=== PATIENT | male | born 1940 | race Caucasian/White ===

== ENCOUNTER 2020-11-27 09:17 | Emergency (ER) | payer MEDICARE ==
[~2020-11-27] VITALS: Ht 167.6 cm; Wt 63.6 kg
[2020-11-27 10:42] LABS: BASOPHILS % (AUTO) 0.3 % (0-1); EOSINOPHILS % (AUTO) 0.4 % (0-6); HEMATOCRIT 46.8 % (42.0-52.0); HEMOGLOBIN 16.4 g/dl (14.0-17.9); LYMPHOCYTES # (AUTO) 0.7 X10'3 (1.1-4.8); LYMPHOCYTES % (AUTO) 11.9 % (21-51); MEAN CORPUSCULAR HEMOGLOBIN 33.4 PG (27.0-31.0); MEAN CORPUSCULAR HGB CONC 35.1 g/dL (33.0-36.5); MEAN CORPUSCULAR VOLUME 95.1 FL (78-98); MEAN PLATELET VOLUME 7.5 FL (7.4-10.4); MONOCYTES # (AUTO) 0.6 X10'3 (0-0.9); MONOCYTES % (AUTO) 10.3 % (2-12); NEUTROPHILS # (AUTO) 4.5 X10'3 (1.8-7.7); NEUTROPHILS % (AUTO) 77.1 % (42-75); PLATELET COUNT 136 X10'3 (140-440); RED BLOOD COUNT 4.92 X10'6 (4.70-6.10); RED CELL DISTRIBUTION WIDTH 12.9 % (11.5-14.5); WHITE BLOOD COUNT 5.9 X10'3 (4.5-11.0)
[2020-11-27 10:57] LABS: ALANINE AMINOTRANSFERASE 44 U/L (12-78); ALBUMIN 3.3 G/DL (3.4-5.0); ALBUMIN/GLOBULIN RATIO 0.8 (1.1-1.5); ALKALINE PHOSPHATASE 58 IU/L (46-116); ANION GAP 10 (8-16); ASPARTATE AMINO TRANSFERASE 31 U/L (10-37); BILIRUBIN,TOTAL 0.7 MG/DL (0.1-1.0); BLOOD UREA NITROGEN 12 MG/DL (7-18); BUN/CREATININE RATIO 14.1 (5.4-32.0); CALCIUM 8.1 MG/DL (8.5-10.1); CHLORIDE 105 MMOL/L (99-107); CREATININE 0.85 MG/DL (0.60-1.10); ETHANOL < 0.010 GM/DL (0.0-0.010); GLUCOSE 102 MG/DL (70-104); POTASSIUM 3.7 MMOL/L (3.5-5.1); SODIUM 140 MMOL/L (135-145); TOTAL CARBON DIOXIDE 25.4 MMOL/L (24-32); TOTAL PROTEIN 7.2 G/DL (6.4-8.2); eGFR 86 ML/MIN
[2020-11-27 11:03] LABS: CLARITY,URINE CLEAR (Clear); COLOR,URINE YELLOW (Yellow); GLUCOSE, URINE NEGATIVE (Neg); KETONES,URINE NEGATIVE (Neg); LEUKOCYTE ESTERASE ,URINE NEGATIVE (Neg); NITRITES, URINE NEGATIVE (Neg); OCCULT BLOOD,URINE NEGATIVE (Neg); PH,URINE 6.5 (4.8-8.0); PROTEIN,URINE NEGATIVE (Neg); UROBILINOGEN,URINE 0.2 E.U/dL (0.2-1.0)
[2020-11-27 11:05] LABS: UA COLLECTION TYPE VOIDED
[2020-11-27 11:19] LABS: URINE AMPHETAMINE SCREEN NEGATIVE (Neg); URINE BARBITUATE SCREEN NEGATIVE (Neg); URINE BENZODIAZEPINES SCREEN NEGATIVE (Neg); URINE CANNABINOID SCREEN NEGATIVE (Neg); URINE COCAINE SCREEN NEGATIVE (Neg); URINE METHADONE SCREEN NEGATIVE (Neg); URINE OPIATE SCREEN NEGATIVE (Neg); URINE PHENCYCLIDINE SCREEN NEGATIVE (Neg)
[2020-11-27] MEDS ORDERED: LIDOcaine 1% W/epiNEPHrine 1:200,000 10ml vial IJ ONE (11:20)
[2020-11-27] MEDS ORDERED: LIDOcaine 1% w/epiNEPHrine 1:200,000 30ml vial IJ ONE ×2 (11:30)
--- NOTE | 2020-11-27 13:35 | NUR ---
Patient laying on gurney, still not communicating. RICARDO Norton to suture wrist lacerations.
--- NOTE | 2020-11-27 13:50 | NUR ---
PT IS AWAKE, PROVIDER AT BEDSIDE REPAIRING WRIST LACERATION. PT INFORMED THAT HIS NIECE HAD CALLED AND REQUESTED TO VISIT AND/OR RECEIVE INFORMATION REGARDING PT'S STATUS. PT HAS GIVEN PERMISSION FOR HIS NIECE TO RECEIVE INFORMATION AND TO VISIT.
[2020-11-27] MEDS ORDERED: FLO0.4C PO (14:07)
[2020-11-27] MEDS ORDERED: FINA5TAB11 PO (14:07)
[2020-11-27] MEDS ORDERED: TROS20TA4 PO (14:07)
[2020-11-27] MEDS ORDERED: TETanus/Pertussis (Acell)/Diphther VAC/PF (Tdap-Adult) 0.5ml syringe IMVAC ONE (14:35)
--- NOTE | 2020-11-27 16:25 | NUR ---
Patient's niece called to talk to patient and phone call transferred to him
--- NOTE | 2020-11-27 18:45 | NUR ---
RICARDO Pedraza notified that leif would like to speak to him regarding "prn" medications she feels would benefit the patient. Leif reassured that patient is currently calm and comfortable, reading magazine with warm blankets and ear plugs.
--- NOTE | 2020-11-27 18:53 | NUR ---
aHydee Mcdowell: [phone] called to check on patient.
[2020-11-27] MEDS: oxybutynin 5mg tablet PO SCH (21:59)
--- NOTE | 2020-11-27 23:41 | NUR ---
Patient ambulatory with steady gait- transferred to other room.
--- NOTE | 2020-11-28 | NUR ---
PATIENT'S PACKET HAS BEEN SENT TO [facility].
--- NOTE | 2020-11-28 00:37 | NUR ---
Patient made aware that it is past midnight- patient thought it was 6am. Patient now laying in bed, resting with even and unlabored respirations.
--- NOTE | 2020-11-28 02:13 | NUR ---
Patient resting in stretcher- earlier was complaining of the "noise". Wearing ear plugs but states he can hear the vents too loudly so was pacing the room trying to find "a quiet area".
--- NOTE | 2020-11-28 04:06 | NUR ---
Patient ambulatory to and from bathroom with steady gait.
--- NOTE | 2020-11-28 06:43 | NUR ---
Received report, pt. sleeping at this time on his left side, rr even and unlabored.
--- NOTE | 2020-11-28 07:41 | NUR ---
Pt. awake, up beside bed doing light exercises at this time, reports he is doing well.
[2020-11-28] MEDS: oxybutynin 5mg tablet PO SCH ×3 (07:46→20:08)
--- NOTE | 2020-11-28 07:50 | NUR ---
1:1 completed at bedside, pt. currently denies any S/I, he states, "I was a little bit stupid. I was pissed off and I messed up." When further questioned by this report writer, he admits that he became upset that he was not able to live with his niece anymore and was placed at [facility]. Pt. reports he regrets what he did and wishes to return this this facility, will endorse to [facility].
[2020-11-28] MEDS ORDERED: tamsulosin 0.4mg capsule PO SCH (08:00)
[2020-11-28] MEDS ORDERED: finasteride 5mg tablet PO SCH (08:00)
--- NOTE | 2020-11-28 08:40 | NUR ---
Pt. up to use the BR at this time, able to do so independently
--- NOTE | 2020-11-28 09:37 | NUR ---
Pt. talking with [facility] at this time.
--- NOTE | 2020-11-28 10:17 | NUR ---
PER BATSHEVA, FAMILY CANNOT TAKE CARE OF HIM. THE FACILITY HE WAS LIVING AT [facility] TAKE HIM BACK. NEEDS TO BE PLACED. BATSHEVA WILL BE CONTACTING [employer] AND APS. APS FOR ABANDONMENT ISSUES.
--- NOTE | 2020-11-28 10:21 | NUR ---
PT ON THE PHONE TALKING TO HIS NIECE.
--- NOTE | 2020-11-28 10:36 | NUR ---
Pt. talking on the telephone with his brunoice at this time.
--- NOTE | 2020-11-28 11:40 | NUR ---
Pt. laying in bed reading at this time after requesting books from staff, rr are even and unlabored.
--- NOTE | 2020-11-28 11:40 | NUR ---
Pt. was compliant with dressing change to bilateral wrists at bedside. Pictures obtained of left wrist, however unable to obtain pictures of wounds to rt. wrist at this time.
--- NOTE | 2020-11-28 13:52 | NUR ---
Pt. laying in bed reading at this time, rr even and unlabored
--- NOTE | 2020-11-28 14:50 | NUR ---
Pt. reading in bed at this time.
--- NOTE | 2020-11-28 15:40 | NUR ---
Pt. continues to lay in bed reading at this time.
--- NOTE | 2020-11-28 16:51 | NUR ---
Pt. sleeping at this time, rr even and unlabored
--- NOTE | 2020-11-28 17:43 | NUR ---
Pt. up in his room at this time, talking to his family on the telephone.
--- NOTE | 2020-11-28 17:59 | NUR ---
Pt. has been accepted at [facility] and will transfer upstairs later tonight at approximately 2100. Pt. has been notified and reports understanding, will endorse to Noc shift.
--- NOTE | 2020-11-28 18:11 | NUR ---
Pt. up to use the BR at this time, returns to his room
--- NOTE | 2020-11-28 19:30 | NUR ---
Patient ambulatory to and from bathroom with steady gait.
--- NOTE | 2020-11-28 20:26 | NUR ---
Patient took night medication without any difficulty, currently resting quietly in bed.
[2020-11-28 21:49] VITALS: BP 138/76
== END 2020-11-28 21:51 ==
LOC: EDBD 09:18 → ER 09:18
DX: S61.512A Laceration without foreign body of left wrist, initial encounter (principal); S61.511A Laceration without foreign body of right wrist, initial encounter; S51.812A Laceration without foreign body of left forearm, initial encounter; Z79.899 Other long term (current) drug therapy; X78.8XXA Intentional self-harm by other sharp object, initial encounter; Y93.89 Activity, other specified; Y92.89 Other specified places as the place of occurrence of the external cause; Y99.8 Other external cause status
CPT/HCPCS: 12002; 36415; 80053; 80305; 80320; 81003; 85025; 87635; 90471; 90715; 99285; C9803